=== PATIENT | female | born 2000 | race Caucasian/White ===

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

== ENCOUNTER 2023-10-09 21:03 | Emergency (ER) | payer MEDICAID, SELFPAY ==
[2023-10-09 21:07] VITALS: BP 156/78; PULSE 124; RESP 16; TEMP 36.7; O2SAT 97; BMI 31.8
[2023-10-09 21:11] VITALS: BP 156/78; PULSE 124; RESP 16; TEMP 36.7; O2SAT 99
--- NOTE | 2023-10-09 21:31 | EDS_ITS ---
HPI History of Present Illness Chief Complaint: Other, Pain/Inj Detail of Chief Complaint: Fall Informant: patient and friend Narrative Narrative: Patient presents via EMS after fall from loft bed at the [facility]. Patient admits to drinking alcohol today. Friend states that she started having trouble walking and he took her back to her dorm around 530. She vomited for couple hours but then seem to be doing better. Friend got her cleaned up and put her to bed. When she came back to check on her she found her lying on the floor next to the bed. Patient's bed is locked did. Patient complains only of facial pain and had a bloody nose at the time. She denies neck pain, extremity pain, continued nausea or vomiting. PFSH PFSH Medical History no medical history no medical history Allergy/AdvReac Type Severity Reaction Status Date / Time No Known Allergies Allergy Verified 10/09/23 21:05 Social History Smoking Status: Never smoker ROS ROS ED Constitutional Constitutional ED: Denies chills or fever(s) Eyes Eyes: Denies discharge from eye(s) ENT ENT ED: Reports other Details: Nasal pain ; Denies discharge from eye(s), rhinorrhea or sore throat Cardiovascular Cardiovascular: Denies chest pain or palpitations Respiratory/Chest Respiratory/Chest: Denies cough or dyspnea Gastrointestinal Gastrointestinal: Reports nausea and vomiting; Denies abdominal pain or diarrhea Genitourinary Genitourinary ED: Denies dysuria Musculoskeletal Musculoskeletal: Denies back pain, extremity pain or neck pain Integumentary Denies Abrasions or rash Neurologic Neurologic: Denies headache(s) or weakness Psychiatric Psychiatric: Denies anxiety or depression Allergic/Immunologic Allergic/Immunologic ED: Denies lip swelling or urticaria EXAM Physical Exam Const Vital Signs: 10/09/23 21:07 10/09/23 21:11 10/09/23 21:11 Temperature 98.1 F 98.1 F Temperature Source Temporal Temporal Pulse Rate 124 H 124 H Respiratory Rate 16 16 Respiratory Pattern Normal Blood Pressure 156/78 H 156/78 H Blood Pressure Mean 104 104 Pulse Ox 97 99 Oxygen Delivery Method Room Air Room Air Positive well nourished and well developed General Appearance ED: well developed HEENT HEENT Narrative: Mild nasal edema noted with dried blood noted in the nares. Extraocular movements are intact. Conjunctival slightly injected. Eyes EOMs intact bilaterally Neck full ROM Neck Narrative: No C-spine tenderness. Chest Wall inspection of chest normal and palpation of chest normal Resp normal respiratory effort and clear to auscultation bilaterally Cardio regular rhythm Rate: regular rate GI non-tender Palpation: soft Back/Spine normal to inspection Extremity normal to inspection Neuro oriented x3, moves all extremities, no focal motor deficits and no sensory deficits noted MDM MDM MDM Narrative Medical decision making narrative: Patient sent for CT imaging of the brain, C-spine, and facial bones to rule out intracranial injury, bleed, fracture. Radiography Diagnostic Testing: Clinical Impression(s) from Imaging Studies Brain CT 10/09/23 21:35 IMPRESSION: Normal unenhanced CT scan of the brain. Electronically Signed: Bob Hicks DO at 21:54 EDT , Cervical Spine CT 10/09/23 21:35 IMPRESSION: No acute bony injury of the cervical spine. Electronically Signed: Bob Hicks DO at 22:06 EDT , Facial/Sinus 10/09/23 21:35 IMPRESSION: No acute bony injury of the facial bones. Mild left facial subcutaneous swelling. Electronically Signed: Bob Hicks DO at 22:23 EDT , Treatment and Re-Evaluation Narrative: CT scan of the head reveals no acute findings. CT C-spine reveals no acute bony injury. CT of the facial bones reveals no acute bony injury. Mild left facial subcu swelling noted. Patient has been stable here. She has been up ambulating to the restroom and back. Her college friend will be with her tonight to monitor her symptoms. Return instructions provided. Discharge Plan Triage Chief Complaint: Other, Pain/Inj ED Provider: Nikkie Moralez Dx/Rx/DC Orders Clinical Impression: Epistaxis, Contusion of face, Fall Instructions: ED Epistaxis (Adult), ED Facial Contusion Primary Care Provider: Ericka Weir,Out of Referrals: [facility] [Group of Physicians] - 5-7 Days Ericka Doctor,Out of [Primary Care Provider] - Disposition Disposition: Home, Self Care
--- NOTE | 2023-10-09 21:35 | CT_ITS ---
INDICATION: trauma EXAMINATION: CT FACIAL BONES - CT Maxillofacial W/O Contrast Injection TECHNIQUE: Helically acquired images were obtained of the facial bones. A radiation dose optimization technique was used for this scan. IV Contrast dosage and agent: None. RADIATION DOSAGE (If Supplied By Facility): CTDIvol = ( 29.38 ) mGy, DLP = ( 591.53 ) mGycm COMPARISON: FINDINGS: SOFT TISSUES: Mild left facial subcutaneous swelling. No discrete fluid collections. VISUALIZED PARANASAL SINUSES: Clear. VISUALIZED MASTOID AIR CELLS: Clear. FACIAL BONES, MANDIBLE AND TMJs: No displaced facial bone fracture. No lytic or blastic abnormality. VISUALIZED DENTITION: No periodontal osseous erosion. ORBITAL CONTENTS: Both globes, extraocular muscles and retrobulbar fat appear unremarkable. CT/Sinus/Facial Bone IMPRESSION: No acute bony injury of the facial bones. Mild left facial subcutaneous swelling. Electronically Signed: Bob Hicks DO at 22:23 EDT Reading Location ID and State: [facility] / [place] Tel [phone], Service support ,
--- NOTE | 2023-10-09 21:35 | CT_ITS ---
STUDY: CT BRAIN WITHOUT CONTRAST REASON FOR EXAM: Female, 22 years old. Trauma RADIATION DOSAGE (If Supplied By Facility): CTDIvol = ( 44.99 ) mGy, DLP = ( 779.24 ) mGycm TECHNIQUE: Transaxial CT imaging of the brain was performed without administration of intravenous contrast material. Individualized dose optimization techniques were used for this CT. COMPARISON: No relevant priors. FINDINGS: Normal soft tissue structures. Normal calvarium. Normal size ventricles and extra-axial spaces for the patient''s age. Normal white matter tracts of the cerebral hemispheres. Normal basal ganglia and thalami. Normal brainstem. Normal cerebellum. There is no intracranial hemorrhage. There are no findings of an acute ischemic infarction. Normal visualized paranasal sinuses. CT/Brain/Head without Contrast IMPRESSION: Normal unenhanced CT scan of the brain. Electronically Signed: Bob Hicks DO at 21:54 EDT ,
--- NOTE | 2023-10-09 21:35 | CT_ITS ---
STUDY: CT CERVICAL SPINE WITHOUT CONTRAST REASON FOR EXAM: Female, 22 years old. Trauma RADIATION DOSAGE (If Supplied By Facility): CTDIvol = ( 22.23 ) mGy, DLP = ( 476.02 ) mGycm TECHNIQUE: High resolution transaxial imaging was performed without contrast material. Sagittal and coronal images were reconstructed. Individualized dose optimization techniques were used for this CT. COMPARISON: None FINDINGS: Normal craniovertebral junction. Normal anterior atlantoaxial articulation. Normal odontoid process. Straightening of the cervical lordosis. Normal vertebral bodies and posterior osseous elements. C2-3: Normal endplates. Normal disc height and morphology. Normal central canal and intervertebral neuroforamina. C3-4: Normal endplates. Normal disc height and morphology. Normal central canal and intervertebral neuroforamina. C4-5: Normal endplates. Normal disc height and morphology. Normal central canal and intervertebral neuroforamina. C5-6: Normal endplates. Normal disc height and morphology. Normal central canal and intervertebral neuroforamina. C6-7: Normal endplates. Normal disc height and morphology. Normal central canal and intervertebral neuroforamina. C7-T1: Normal endplates. Normal disc height and morphology. Normal central canal and intervertebral neuroforamina. Normal visualized soft tissue structures. CT/Spine Cervical without Contras IMPRESSION: No acute bony injury of the cervical spine. Electronically Signed: Bob Hicks DO at 22:06 EDT Reading Location ID and State: [facility] / [place] Tel [phone], Service support ,
== END 2023-10-09 22:39 | disposition home or self-care (01) ==
PROVIDERS: Emergency Provider Emergency Medicine; Visit Provider Emergency Medicine
DX: R04.0 Epistaxis (principal); S00.83XA Contusion of other part of head, initial encounter; W06.XXXA Fall from bed, initial encounter; Y92.214 College as the place of occurrence of the external cause; R11.2 Nausea with vomiting, unspecified
CPT/HCPCS: 70450; 70486; 72125; 99282